=== PATIENT | female | born 1935 | race Caucasian/White ===

== ENCOUNTER 2019-01-08 12:57 | Inpatient (IN) | payer MEDICARE, MEDICAID ==
[~2019-01-08] VITALS: Ht 152.4 cm; Wt 67.1 kg
--- NOTE | 2019-01-08 13:17 | NUR ---
ED Nurse Note: Patient was brought in by son from home, d/t fall twice today at home. Per son, pt hit right side of the body and head. Pt aox4, Bengali speaking. On room air, no resp distress noted. Pt c/o headache 10/18, denies n/v/changes in vision. Per son, no loss of consciousness noted. Laceration on right upper lip noted. Placed patient on hospital gown, gambling monitor, and cont. pulse ox. VSS at this time. Son at bedside. Safety precautions in place, bed in lowest position and side rails up x2. Will continue to monitor.
--- NOTE | 2019-01-08 13:27 | Emergency Room Report ---
History of Present Illness General Chief Complaint: Multiple Trauma/Fall Source: Family Member Present Illness HPI Patient presents with complaints of fall this morning The son reports that after she fell off her bed she ambulated and had another fall outside she has been complaining of feeling lightheadedness and weak Denies any vomiting or diarrhea denies any lapse of consciousness Patient had pain to the right hip area along with the right facial region Denies any neck pain denies any focal weakness in the upper extremities Patient has had some change in medications recently however is not able to provide the names of the new medication Allergies: Coded Allergies: No Known Allergies (Unverified , 01/08/19) Patient History Past Medical History: see triage record Reviewed Nursing Documentation: PMH: Agreed; PSxH: Agreed Nursing Documentation-PMH Hx Hypertension: Yes Hx Diabetes: Yes Review of Systems All Other Systems: negative except mentioned in HPI Physical Exam Vital Signs Date Time Temp Pulse Resp B/P (MAP) Pulse Ox O2 Delivery O2 Flow Rate FiO2 01/08/19 13:06 98.2 77 18 124/61 (82) 96 Room Air Sp02 EP Interpretation: reviewed, normal General Appearance: well appearing, no apparent distress Head: normocephalic, other - Contusions noted to the right upper maxillary and lower jawline small abrasion to the upper lip Eyes: bilateral eye PERRL, bilateral eye EOMI ENT: hearing grossly normal, TMs + canals normal, uvula midline Neck: full range of motion, supple, no meningismus, no bony tend Respiratory: lungs clear, normal breath sounds, no rhonchi, no respiratory distress, no retraction, no accessory muscle use Cardiovascular #1: normal peripheral pulses, regular rate, rhythm, no edema, no gallop, no JVD, no murmur Gastrointestinal: normal bowel sounds, non tender, soft, no mass, no organomegaly, non-distended, no guarding, no hernia, no pulsatile mass, no rebound Genitourinary: no CVA tenderness Musculoskeletal: other - Pain to the right hip on palpation unable to fully flex the right leg Neurologic: oriented x3, responsive, conductor yard III-XII nml as tested, motor strength/ tone normal, sensory intact Psychiatric: mood/affect normal Skin: other - As above Lymphatic: normal inspection, no adenopathy Medical Decision Making Labs Test 01/08/19 13:30 White Blood Count 12.2 K/UL (4.8-10.8) Red Blood Count 2.67 M/UL (4.20-5.40) Hemoglobin 12.1 G/DL (12.0-16.0) Hematocrit 23.7 % (37.0-47.0) Mean Corpuscular Volume 89 FL (80-99) Mean Corpuscular Hemoglobin 45.3 PG (27.0-31.0) Mean Corpuscular Hemoglobin Concent 51.2 G/DL (32.0-36.0) Red Cell Distribution Width 19.7 % (11.6-14.8) Platelet Count 238 K/UL (150-450) Mean Platelet Volume 6.8 FL (6.5-10.1) Neutrophils (%) (Auto) 71.4 % (45.0-75.0) Lymphocytes (%) (Auto) 15.1 % (20.0-45.0) Monocytes (%) (Auto) 7.0 % (1.0-10.0) Eosinophils (%) (Auto) 5.7 % (0.0-3.0) Basophils (%) (Auto) 0.7 % (0.0-2.0) Sodium Level 138 MMOL/L (136-145) Potassium Level 3.7 MMOL/L (3.5-5.1) Chloride Level 105 MMOL/L (98-107) Carbon Dioxide Level 23 MMOL/L (21-32) Anion Gap 10 mmol/L (5-15) Blood Urea Nitrogen 29 mg/dL (7-18) Creatinine 1.4 MG/DL (0.55-1.30) Estimat Glomerular Filtration Rate mL/min (>60) Glucose Level 257 MG/DL (74-106) Calcium Level 8.7 MG/DL (8.5-10.1) Total Bilirubin 0.6 MG/DL (0.2-1.0) Aspartate Amino Transf (AST/SGOT) 29 U/L (15-37) Alanine Aminotransferase (ALT/SGPT) 37 U/L (12-78) Alkaline Phosphatase 94 U/L (46-116) Troponin I 0.000 ng/mL (0.000-0.056) Pro-B-Type Natriuretic Peptide 359 pg/mL (0-125) Total Protein 7.4 G/DL (6.4-8.2) Albumin 3.5 G/DL (3.4-5.0) Globulin 3.9 g/dL Albumin/Globulin Ratio 0.9 (1.0-2.7) Lipase 216 U/L (73-393) Rhythm Strip Diag. Results EP Interpretation: yes Rate: 66 Rhythm: NSR, no PVC's, no ectopy Chest X-Ray Diagnostic Results Chest X-Ray Diagnostic Results : Chest X-Ray Ordered: Yes # of Views/Limited/Complete: 1 View Indication: Chest Pain EP Interpretation: Yes Interpretation: no consolidation, no effusion, no pneumothorax Last Vital Signs Date Time Temp Pulse Resp B/P (MAP) Pulse Ox O2 Delivery O2 Flow Rate FiO2 01/08/19 13:06 98.2 77 18 124/61 (82) 96 Room Air Status: improved Bettina Gonzales DO Jan 08, 2019 13:27
--- NOTE | 2019-01-08 13:37 | NUR ---
ED Nurse Note: xray at bedside.
[2019-01-08 13:47] LABS: BASOPHILS % (AUTO) 0.7 % (0.0-2.0); EOSINOPHILS % (AUTO) 5.7 % (0.0-3.0); HEMATOCRIT 23.7 % (37.0-47.0); HEMOGLOBIN 12.1 G/DL (12.0-16.0); LYMPHOCYTES % (AUTO) 15.1 % (20.0-45.0); MEAN CORPUSCULAR VOLUME 89 FL (80-99); NEUTROPHILS % (AUTO) 71.4 % (45.0-75.0); PLATELET COUNT 238 K/UL (150-450); RED BLOOD COUNT 2.67 M/UL (4.20-5.40); RED CELL DISTRIBUTION WIDTH 19.7 % (11.6-14.8); WHITE BLOOD COUNT 12.2 K/UL (4.8-10.8)
--- NOTE | 2019-01-08 13:50 | NUR ---
ED Nurse Note: pt take down to CT, in stable condition.
[2019-01-08] MEDS ORDERED: GLIPIZIDE10 MG PO (13:53)
[2019-01-08] MEDS ORDERED: TACTINAL500 M1 PO (13:53)
[2019-01-08] MEDS ORDERED: DONEPEZIL HCL5 M2 ORAL (13:53)
[2019-01-08] MEDS ORDERED: CHLORTHALIDONE25 MG ORAL (13:55)
[2019-01-08] MEDS ORDERED: OMEPRAZOLE40 M1 ORAL (13:55)
[2019-01-08] MEDS ORDERED: MELOXICAM7.5 MG PO (13:55)
[2019-01-08] MEDS ORDERED: LORATADINE10 M2 PO (13:56)
[2019-01-08] MEDS ORDERED: LOSARTAN POTASS50 MG ORAL (13:56)
[2019-01-08 14:00] LABS: ANION GAP 10 mmol/L (5-15); BLOOD UREA NITROGEN 29 mg/dL (7-18); CALCIUM 8.7 MG/DL (8.5-10.1); CARBON DIOXIDE 23 MMOL/L (21-32); CHLORIDE 105 MMOL/L (98-107); CREATININE 1.4 MG/DL (0.55-1.30); POTASSIUM 3.7 MMOL/L (3.5-5.1); SODIUM 138 MMOL/L (136-145)
[2019-01-08 14:05] VITALS: BP 124/61
[2019-01-08 14:11] LABS: ALANINE AMINOTRANSFERASE 37 U/L (12-78); ALBUMIN 3.5 G/DL (3.4-5.0); ALBUMIN/GLOBULIN RATIO 0.9 (1.0-2.7); ALKALINE PHOSPHATASE 94 U/L (46-116); ASPARTATE AMINO TRANSFERASE 29 U/L (15-37); BILIRUBIN,TOTAL 0.6 MG/DL (0.2-1.0)
--- NOTE | 2019-01-08 14:11 | NUR ---
ED Nurse Note: Pt back from CT in stable condition.
--- NOTE | 2019-01-08 14:58 | Diagnostic Imaging Report ---
Indication: Headache Technique: Contiguous 5 mm thick transaxial imaging of the head obtained in a Siemens Sensation [address] scanner. Soft tissue and bone windows generated. Automatic Exposure Control was utilized. Total Dose length Product (DLP): [address] Dose Index Volume (CTDIvol): 62.7 mGy Comparison: none Findings: There is mild prominence of the ventricles, basal cisterns, and cerebral sulci consistent with atrophy. Mild, nonspecific, white matter hypoattenuation is noted throughout the brain consistent with chronic small vessel disease. There is no midline shift, edema, acute hemorrhage, mass effect, or abnormal extra-axial fluid collections. Right posterior fossa craniectomy noted Bones are unremarkable. Impression: No acute intracranial bleed, mass effect or edema. Mild atrophy of the brain. Nonspecific white matter hypoattenuation probably due to chronic small vessel disease. Right-sided posterior craniectomy The CT scanner at [facility] is accredited by the [employer] and the scans are performed using dose optimization techniques as appropriate to a performed exam including Automatic Exposure control.
--- NOTE | 2019-01-08 15:00 | NUR ---
ED Nurse Note: Pt noted in bed, asleep, no s/s of distress/pain at this time. Will cont. to monitor.
--- NOTE | 2019-01-08 15:04 | Diagnostic Imaging Report ---
Indication: Back pain and trauma Technique: Continuous helical transaxial imaging of the lumbar spine was obtained. No IV contrast was administered. Coronal 2-D reformats were also obtained. Study obtained in a Siemens sensation [address] Total Dose length Product (DLP): 646.[address] Dose Index Volume (CTDIvol): 17.1 mGy Comparison: None Findings: There is a severe compression fracture deformity of the T12 vertebra with about 80% loss of height mild retropulsion. This appears old. There is kyphosis about the fracture which is fractured in a anterior wedge configuration. Bones are osteopenic. No acute fracture is identified. The intervertebral discs appear relatively normal in height. There is severe hypertrophy of the lower lumbar facets and mild hypertrophy of the lumbar facets elsewhere. There is suggestion of a disc bulge or protrusion at L4-5 and L5-S1. There is suggestion of neural foraminal stenosis involving multiple levels. Aorta is moderately calcified. There is irregular sclerosis of the sacrum bilaterally. Findings are nonspecific but may be on the basis of old trauma. IMPRESSION: No acute injury identified. Old severe compression fracture deformity of the T12 vertebra. Resultant kyphosis. Sclerosis of the sacrum which may be due to old trauma. Osteoporosis Degenerative disease of the lumbar spine as described above Atherosclerotic disease The CT scanner at [facility] is accredited by the [employer] and the scans are performed using dose optimization techniques as appropriate to a performed exam including Automatic Exposure control.
--- NOTE | 2019-01-08 15:13 | Diagnostic Imaging Report ---
Indication: Pelvic pain. Trauma Technique: Continuous helical transaxial imaging of the pelvis was obtained from the iliac crest to the pubic symphysis. Coronal 2-D reformats were also obtained. Study obtained in a Siemens sensation [address] Total Dose length Product (DLP): 1004.[address] Dose Index Volume (CTDIvol): 26.7 mGy Comparison: None Findings: No fracture identified. There is sclerosis of the sacrum bilaterally which may be on the basis of previous trauma but is nonspecific finding. There is an old fracture of the right superior pubic ramus and right inferior pubic ramus. There is an old fracture of the left inferior pubic ramus. Bones are osteopenic. The hips are normal in alignment. No hip fracture identified. Aortoiliac calcifications are present. Uterus noted. Bladder is nondistended. No free fluid identified in the pelvis. IMPRESSION: No acute injury. Evidence of old pelvic trauma as described above The CT scanner at [facility] is accredited by the [employer] and the scans are performed using dose optimization techniques as appropriate to a performed exam including Automatic Exposure control.
[2019-01-08 15:23] VITALS: BP 111/44
--- NOTE | 2019-01-08 15:42 | Diagnostic Imaging Report ---
Indication: Dyspnea Comparison: None A single view chest radiograph was obtained. Findings: No definite infiltrate or pulmonary vascular congestion identified. The heart is enlarged. The aorta is mildly enlarged consistent with atherosclerotic vascular disease. The bones are osteopenic. Impression: No acute disease
--- NOTE | 2019-01-08 16:47 | NUR ---
ED Nurse Note: Report given to KATELYNN Hernandez via telephone.
--- NOTE | 2019-01-08 16:52 | History and Physical ---
History of Present Illness General Reason for Hospitalization: Multiple Trauma/Fall Present Illness HPI This is an 83 year old female with PMhx HTN, DM, Dementia, peripheral neuropathy who presents with 1 day history of lightheadedness weakness and 2 falls. History provided by Son and nurse who provided bulgarian translation. LKWT 01/07 at 1300. Patient altered today. History provided by son. The son reports that today after she fell off her bed she ambulated and had another fall outside she has been complaining of feeling lightheadedness and weak Denies any vomiting or diarrhea denies any lapse of consciousness. Patient had pain to the right hip area along with laceration to upper lip. Denies any neck pain denies any focal weakness in the upper extremities. She does complain of dysuria, for an unknown period of time. Also with intermittent palpitations she mentions. In the ER temperature 98.2 pulse 77 respirations 18 blood pressure 124/61 saturating 96% on room air. WBC 12, hemoglobin 12.1 (unknown baselin), creatinine 1.4 (unknown baseline), blood sugar 257. Rest of labs unremarkable. Troponin negative. proBNP 359. Chest x-ray negative, CT head negative. EKG unremarkable. CT thoracic spine showed no acute injury identified, but old severe compression fracture of T12, sclerosis of sacrum. CT pelvis showed Evidence of old pelvic trauma. No acute injury. Patient given 1L IV fluids with improvement in symptoms Allergies: none Medications: reviewed PMhx: Fibromyalgia, HTN, DM Surgical History: Surgery for fibromyalgia? Family history: HTN, sister Social history: Former smoker and drinker. Quit many years ago. No drug use. Allergies: Coded Allergies: No Known Allergies (Unverified , 01/08/19) Medication History Scheduled Acetaminophen (Tactinal), 500 MG PO EVERY 8 HOURS, (Reported) Chlorthalidone* (Chlorthalidone*), 25 MG ORAL DAILY, (Reported) Donepezil Hcl* (Donepezil Hcl*), 5 MG ORAL DAILY, (Reported) Gabapentin* (Gabapentin*), 300 MG ORAL THREE TIMES A DAY, (Reported) Glipizide (Glipizide), 10 MG PO TWICE A DAY, (Reported) Isosorbide Mononitrate (Isosorbide Mononitrate), 60 MG PO DAILY, (Reported) Loratadine (Loratadine), 10 MG PO DAILY, (Reported) Losartan Potassium* (Losartan Potassium*), 100 MG ORAL DAILY, (Reported) Meloxicam* (Meloxicam*), 7.5 MG PO DAILY, (Reported) Omeprazole (Omeprazole), 40 MG ORAL DAILY, (Reported) Patient History Limited by: medical condition History Provided By: Patient, Family Member Healthcare decision maker Son Resuscitation status Full Code Advanced Directive on File None Review of Systems Constitutional: Reports: weakness; Denies: see HPI, chills, sweats, fever, malaise, other Eye: Denies: see HPI, eye pain, blurred vision, tearing, double vision, nose pain, nose congestion, acuity changes, discharge, other ENT: Denies: see HPI, ear pain, ear discharge, nose pain, nose congestion, throat pain, throat swelling, mouth pain, hearing loss, nasal discharge, other Respiratory: Denies: see HPI, cough, orthopnea, shortness of breath, stridor, wheezing, SAAVEDRA, sputum, other Cardiovascular: Denies: see HPI, chest pain, edema, palpitations, syncope, PND , other Gastrointestinal: Denies: see HPI, abdominal pain, constipation, diarrhea, nausea, vomiting, melena, hematemesis, other Genitourinary: Denies: see HPI, discharge, dysuria, frequency, hematuria, pain , retention, incontinence, urgency, vag bleed/dc, other Musculoskeletal: Denies: see HPI, back pain, gout, joint pain, joint swelling, muscle pain, muscle stiffness, other Skin: Denies: see HPI, rash, change in color, change in hair/nails, dryness, lesions, other Psychiatric: Denies: see HPI, prior hx, anxiety, depressed feelings, emotional problems, SI, HI, hallucinations, other Neurological: Reports: dizziness; Denies: see HPI, headache, numbness, paresthesia, seizure, tingling, tremors, focal weakness, syncope, other Endocrine: Denies: see HPI, excessive sweating, flushing, intolerance to temperature, increased thirst, increased urine, unexplained weight loss, other Hematologic/Lymphatic: Denies: see HPI, anemia, blood clots, easy bleeding, easy bruising, swollen glands, diathesis, other Physical Exam General Appearance: WD/WN, no apparent distress, alert, other - slightly drowsy Lines, tubes and drains: peripheral HEENT: normocephalic, atraumatic, anicteric Neck: non-tender, normal alignment, normal inspection Respiratory/Chest: chest wall non-tender, lungs clear, normal breath sounds, no respiratory distress Cardiovascular/Chest: normal peripheral pulses, normal rate, regular rhythm, no JVD Abdomen: normal bowel sounds, non tender, soft, no organomegaly, no mass Extremities: normal range of motion, non-tender, normal inspection Skin Exam: normal pigmentation, warm/dry 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, no motor/sensory deficits, alert, responsive, normal mood/affect, other - right sided facial droop and decreased sensation to light touch on right side of face (present since facial surgery for fibromyalgia), chronic Musculoskeletal: normal muscle bulk, no effusion Last 24 Hour Vital Signs Date Time Temp Pulse Resp B/P (MAP) Pulse Ox O2 Delivery O2 Flow Rate FiO2 01/08/19 15:23 98.2 70 18 111/44 96 Room Air 01/08/19 14:05 98.2 78 18 124/61 96 Room Air 01/08/19 14:05 77 18 Room Air 01/08/19 13:06 98.2 77 18 124/61 (82) 96 Room Air Laboratory Tests Test 01/08/19 13:30 White Blood Count 12.2 K/UL (4.8-10.8) H Red Blood Count 2.67 M/UL (4.20-5.40) L Hemoglobin 12.1 G/DL (12.0-16.0) Hematocrit 23.7 % (37.0-47.0) L Mean Corpuscular Volume 89 FL (80-99) Mean Corpuscular Hemoglobin 45.3 PG (27.0-31.0) H Mean Corpuscular Hemoglobin Concent 51.2 G/DL (32.0-36.0) H Red Cell Distribution Width 19.7 % (11.6-14.8) H Platelet Count 238 K/UL (150-450) Mean Platelet Volume 6.8 FL (6.5-10.1) Neutrophils (%) (Auto) 71.4 % (45.0-75.0) Lymphocytes (%) (Auto) 15.1 % (20.0-45.0) L Monocytes (%) (Auto) 7.0 % (1.0-10.0) Eosinophils (%) (Auto) 5.7 % (0.0-3.0) H Basophils (%) (Auto) 0.7 % (0.0-2.0) Sodium Level 138 MMOL/L (136-145) Potassium Level 3.7 MMOL/L (3.5-5.1) Chloride Level 105 MMOL/L (98-107) Carbon Dioxide Level 23 MMOL/L (21-32) Anion Gap 10 mmol/L (5-15) Blood Urea Nitrogen 29 mg/dL (7-18) H Creatinine 1.4 MG/DL (0.55-1.30) H Estimat Glomerular Filtration Rate mL/min (>60) Glucose Level 257 MG/DL (74-106) H Calcium Level 8.7 MG/DL (8.5-10.1) Total Bilirubin 0.6 MG/DL (0.2-1.0) Aspartate Amino Transf (AST/SGOT) 29 U/L (15-37) Alanine Aminotransferase (ALT/SGPT) 37 U/L (12-78) Alkaline Phosphatase 94 U/L (46-116) Troponin I 0.000 ng/mL (0.000-0.056) Pro-B-Type Natriuretic Peptide 359 pg/mL (0-125) H Total Protein 7.4 G/DL (6.4-8.2) Albumin 3.5 G/DL (3.4-5.0) Globulin 3.9 g/dL Albumin/Globulin Ratio 0.9 (1.0-2.7) L Lipase 216 U/L (73-393) Height (Feet): 4 Height (Inches): 9.00 Weight (Pounds): 160 Assessment/Plan Problem List: (1) Near syncope ICD Codes: R55 - Syncope and collapse SNOMED: 052693687 (2) Generalized weakness ICD Codes: R53.1 - Weakness SNOMED: 26608494 (3) Fall ICD Codes: W19.XXXA - Unspecified fall, initial encounter SNOMED: 9302574, 210918640 (4) Lightheaded ICD Codes: R42 - Dizziness and giddiness SNOMED: 907166042 (5) Leukocytosis ICD Codes: D72.829 - Elevated white blood cell count, unspecified SNOMED: 262207202, 724088040 (6) Diabetes mellitus type 2 in nonobese ICD Codes: E11.9 - Type 2 diabetes mellitus without complications SNOMED: 915767426 (7) Hypertension ICD Codes: I10 - Essential (primary) hypertension SNOMED: 91777946 (8) Peripheral neuropathy ICD Codes: G62.9 - Polyneuropathy, unspecified SNOMED: 781396730 (9) Hyperglycemia ICD Codes: R73.9 - Hyperglycemia, unspecified SNOMED: 42119552 (10) T12 compression fracture ICD Codes: S22.080A - Wedge compression fracture of T11-T12 vertebra, initial encounter for closed fracture SNOMED: 414881727 (11) Multiple injuries due to trauma ICD Codes: T07.XXXA - Unspecified multiple injuries, initial encounter SNOMED: 431331731, 011772128 Assessment/Plan: Is an 83-year-old female with a past medical history of diabetes, hypertension, peripheral neuropathy presenting with generalized weakness, lightheadedness x 1 day and dysuria. #Near syncope #Generalized weakness, lightheadedness. Suspect dehydration versus infection ( UTI) #Leukocytosis, mild. Reactive vs. infectious > Unable to obtain UA in emergency department. -Admit to telemetry -TTE -Trend troponins -Urinalysis with straight cath -Check orthostatics -Blood culture x2 -Start Rocephin 1 g IV every 24 hours (01/08 - ) -NS @ 100 cc/hr #TESSIE versus CKD. Suspect prerenal -IV fluids as above -trend Cr -avoid nephrotoxins -bladder scan. straight cath if >300cc #lip laceration - wound care consult #Hypertension -Continue losartan 100 mg p.o. daily -Hold chlorthalidone as may be contributing to dehydration as above -Hydralazine 10 mg p.o. every 6 hours as needed for SBP greater than 160 #Diabetes mellitus type 2 -Hold home glipizide -Accu-Cheks before meals and at bedtime -Low sliding scale insulin -Hypoglycemia protocol #Peripheral neuropathy Continue home gabapentin 300 mg p.o. 3 times daily #History of T12 compression fracture #History of multiple pelvic fractures - continue to monitor - needs osteoporosis treatment as outpatient, likely FENPPX DVTPPX: heparin SBQ Q8hrs GI PPX: none needed Fluids: As above Diet: Diabetic Lines: peripheral PT/OT: pending Code status: Full Dispo: Home with home health vs. snf Reason for Continued Hospitalization: AMS, weakness 73 minutes spent on this encounter. Discussed with patient, RN, and family. > 50 % spent on counseling and care coordination. Time of note may not reflect time patient was seen. Jonathan Arevalo D.O. Jan 08, 2019 16:52
--- NOTE | 2019-01-08 17:17 | NUR ---
TRANSFER TO FLOOR: Patient transferred to [facility] as ordered, per Dr Ortega. Report given to KATELYNN Hernandez. Belongings signed. Transferred patient via gurney, accompanied by 2 RNs. Son, Francisco notified. Patient remains in stable condition.
[2019-01-08] MEDS ORDERED: GABAPENTIN300 MG ORAL (18:20)
[2019-01-08] MEDS ORDERED: ISOSORBIDE MONO20 MG PO (18:20)
[2019-01-08] MEDS ORDERED: HydrALAZINE 10mg Tab ORAL PRN (18:45)
--- NOTE | 2019-01-08 19:24 | NUR ---
HAND-OFF: Report given to KATELYNN Troncoso.
--- NOTE | 2019-01-08 19:24 | History and Physical ---
History of Present Illness General Date patient seen: Jan 08, 2019 Reason for Hospitalization: Multiple Trauma/Fall Present Illness HPI This is an 83-year-old female with a past medical history of hypertension, diabetes Allergies: Coded Allergies: No Known Allergies (Unverified , 01/08/19) Medication History Scheduled Acetaminophen (Tactinal), 500 MG PO EVERY 8 HOURS, (Reported) Chlorthalidone* (Chlorthalidone*), 25 MG ORAL DAILY, (Reported) Donepezil Hcl* (Donepezil Hcl*), 5 MG ORAL DAILY, (Reported) Gabapentin* (Gabapentin*), 300 MG ORAL THREE TIMES A DAY, (Reported) Glipizide (Glipizide), 10 MG PO TWICE A DAY, (Reported) Isosorbide Mononitrate (Isosorbide Mononitrate), 60 MG PO DAILY, (Reported) Loratadine (Loratadine), 10 MG PO DAILY, (Reported) Losartan Potassium* (Losartan Potassium*), 100 MG ORAL DAILY, (Reported) Meloxicam* (Meloxicam*), 7.5 MG PO DAILY, (Reported) Omeprazole (Omeprazole), 40 MG ORAL DAILY, (Reported) Patient History Healthcare decision maker Resuscitation status Full Code Advanced Directive on File Physical Exam Last 24 Hour Vital Signs Date Time Temp Pulse Resp B/P (MAP) Pulse Ox O2 Delivery O2 Flow Rate FiO2 01/08/19 18:16 Room Air 01/08/19 17:39 98.2 72 18 122/82 98 Room Air 01/08/19 15:23 98.2 70 18 111/44 96 Room Air 01/08/19 14:05 98.2 78 18 124/61 96 Room Air 01/08/19 14:05 77 18 Room Air 01/08/19 13:06 98.2 77 18 124/61 (82) 96 Room Air Laboratory Tests Test 01/08/19 13:30 White Blood Count 12.2 K/UL (4.8-10.8) H Red Blood Count 2.67 M/UL (4.20-5.40) L Hemoglobin 12.1 G/DL (12.0-16.0) Hematocrit 23.7 % (37.0-47.0) L Mean Corpuscular Volume 89 FL (80-99) Mean Corpuscular Hemoglobin 45.3 PG (27.0-31.0) H Mean Corpuscular Hemoglobin Concent 51.2 G/DL (32.0-36.0) H Red Cell Distribution Width 19.7 % (11.6-14.8) H Platelet Count 238 K/UL (150-450) Mean Platelet Volume 6.8 FL (6.5-10.1) Neutrophils (%) (Auto) 71.4 % (45.0-75.0) Lymphocytes (%) (Auto) 15.1 % (20.0-45.0) L Monocytes (%) (Auto) 7.0 % (1.0-10.0) Eosinophils (%) (Auto) 5.7 % (0.0-3.0) H Basophils (%) (Auto) 0.7 % (0.0-2.0) Sodium Level 138 MMOL/L (136-145) Potassium Level 3.7 MMOL/L (3.5-5.1) Chloride Level 105 MMOL/L (98-107) Carbon Dioxide Level 23 MMOL/L (21-32) Anion Gap 10 mmol/L (5-15) Blood Urea Nitrogen 29 mg/dL (7-18) H Creatinine 1.4 MG/DL (0.55-1.30) H Estimat Glomerular Filtration Rate mL/min (>60) Glucose Level 257 MG/DL (74-106) H Calcium Level 8.7 MG/DL (8.5-10.1) Total Bilirubin 0.6 MG/DL (0.2-1.0) Aspartate Amino Transf (AST/SGOT) 29 U/L (15-37) Alanine Aminotransferase (ALT/SGPT) 37 U/L (12-78) Alkaline Phosphatase 94 U/L (46-116) Troponin I 0.000 ng/mL (0.000-0.056) Pro-B-Type Natriuretic Peptide 359 pg/mL (0-125) H Total Protein 7.4 G/DL (6.4-8.2) Albumin 3.5 G/DL (3.4-5.0) Globulin 3.9 g/dL Albumin/Globulin Ratio 0.9 (1.0-2.7) L Lipase 216 U/L (73-393) Height (Feet): 5 Height (Inches): 9.00 Weight (Pounds): 148 Medications Current Medications Medications (Trade) Dose Ordered Sig/Aida Route PRN Reason Start Time Stop Time Status Last Admin Dose Admin Ceftriaxone Sodium (Rocephin) 1 gm DAILY IM 01/08/19 18:30 01/15/19 18:29 UNV Dextrose (Dextrose 50%) 25 ml Q30M PRN IV Hypoglycemia 01/08/19 18:30 02/07/19 18:29 Dextrose (Dextrose 50%) 50 ml Q30M PRN IV Hypoglycemia 01/08/19 18:30 02/07/19 18:29 Donepezil HCl (Aricept) 5 mg DAILY ORAL 01/09/19 09:00 02/08/19 08:59 Gabapentin (Neurontin) 300 mg THREE TIMES A DAY ORAL 01/09/19 09:00 02/08/19 08:59 Heparin Sodium (Porcine) (Heparin 5000 units/ml) 5,000 units EVERY 8 HOURS SUBQ 01/08/19 22:00 02/07/19 21:59 Hydralazine HCl (Apresoline) 10 mg Q6H PRN ORAL SBP >160 01/08/19 18:45 02/07/19 18:44 Insulin Aspart (NovoLOG) BEFORE MEALS AND HS SUBQ 01/08/19 21:00 02/07/19 20:59 Loratadine (Claritin 10mg) 10 mg DAILY ORAL 01/09/19 09:00 02/08/19 08:59 Losartan Potassium (Cozaar) 100 mg DAILY ORAL 01/09/19 09:00 02/08/19 08:59 Sodium Chloride 1,000 ml @ 100 mls/hr Q10H IVLG 01/08/19 19:30 02/07/19 19:29 Jonathan Arevalo D.O. Jan 08, 2019 19:24
--- NOTE | 2019-01-08 19:31 | NUR ---
NURSE NOTES: Received report from KATELYNN Hernandez. Patient is resting comfortably in bed with IV intact, alert and oriented x3. No c/o of pain or SOB on room air. Bed in low and locked position, call light in reach, yellow socks on. Will continue to monitor.
[2019-01-08 20:00] VITALS: BP 103/42
--- NOTE | 2019-01-08 20:00 | NUR ---
NURSE NOTES: Received pt from Aba RN from [facility]. Pt awake, alert, and talkative. Bed in lowest position. Call light within reach. Will continue to monitor.
--- NOTE | 2019-01-08 20:14 | NUR ---
HAND-OFF: Report given to 2E bronc breaker Kate. Patient is set to transfer from 3E to 2E. Patient is in stable condition.
[2019-01-08] MEDS: cefTRIAXone 1 GM in D5W 55 ML IVPB SCH (22:14)
[2019-01-08] MEDS: NovoLOG Insulin Flexpen SUBQ SCH (22:25)
[2019-01-08] MEDS: Heparin 5000 units/ml inj SUBQ SCH (22:27)
[2019-01-09] VITALS (8 sets, daily range): BP systolic 121–185; BP diastolic 58–87
[2019-01-09 00:02] LABS: APPEARANCE,URINE CLEAR; BILIRUBIN, URINE NEGATIVE (NEGATIVE); COLOR,URINE PALE YELLOW; GLUCOSE, URINE (UA) NEGATIVE (NEGATIVE); KETONES,URINE NEGATIVE (NEGATIVE); LEUKOCYTE ESTERASE ,URINE 1+ (NEGATIVE); NITRITE,URINE NEGATIVE (NEGATIVE); PH,URINE 6 (4.5-8.0); PROTEIN,URINE 2+ (NEGATIVE); UROBILINOGEN,URINE NORMAL MG/DL (0.0-1.0)
--- NOTE | 2019-01-09 01:33 | NUR ---
NURSE NOTES: Called and left a message with Dr. Jeffers regarding pts episodes of bigeminy and trigeminy pvcs. She ordered repeat BMP in the AM. Will continue to monitor.
[2019-01-09] MEDS: Heparin 5000 units/ml inj SUBQ SCH ×3 (05:32→22:00)
[2019-01-09] MEDS: NovoLOG Insulin Flexpen SUBQ SCH ×4 (05:33→21:00)
[2019-01-09 07:30] LABS: ANION GAP 12 mmol/L (5-15); BLOOD UREA NITROGEN 27 mg/dL (7-18); CALCIUM 8.5 MG/DL (8.5-10.1); CARBON DIOXIDE 24 MMOL/L (21-32); CHLORIDE 108 MMOL/L (98-107); CREATININE 1.2 MG/DL (0.55-1.30); POTASSIUM 3.9 MMOL/L (3.5-5.1); SODIUM 143 MMOL/L (136-145)
--- NOTE | 2019-01-09 07:32 | NUR ---
HAND-OFF: Report given to KATELYNN Patel. Pt stable.
--- NOTE | 2019-01-09 07:37 | NUR ---
NURSE NOTES: Received patient from Charles Venegas. Patient is awake in bed. No complain of pain or discomfort. Reminded patient re; Safety precautions. call valenzuela within reached, side rails X2 up for safety. bed locked to lowest position. will monitor patient throughout shift
[2019-01-09 07:56] LABS: BASOPHILS % (AUTO) 0.4 % (0.0-2.0); EOSINOPHILS % (AUTO) 6.8 % (0.0-3.0); HEMATOCRIT 33.2 % (37.0-47.0); HEMOGLOBIN 11.6 G/DL (12.0-16.0); LYMPHOCYTES % (AUTO) 26.3 % (20.0-45.0); MEAN CORPUSCULAR VOLUME 84 FL (80-99); NEUTROPHILS % (AUTO) 61.6 % (45.0-75.0); PLATELET COUNT 218 K/UL (150-450); RED BLOOD COUNT 3.98 M/UL (4.20-5.40); RED CELL DISTRIBUTION WIDTH 12.5 % (11.6-14.8); WHITE BLOOD COUNT 9.5 K/UL (4.8-10.8)
[2019-01-09] MEDS: Donepezil 5mg Tab ORAL SCH (08:23)
[2019-01-09] MEDS: Losartan 50mg tab ORAL SCH (08:23)
[2019-01-09] MEDS ORDERED: traMADol 50mg tab ORAL PRN (12:45)
--- NOTE | 2019-01-09 13:04 | General Progress Note ---
Assessment/Plan Problem List: (1) Near syncope ICD Codes: R55 - Syncope and collapse SNOMED: 607441943 (2) Generalized weakness ICD Codes: R53.1 - Weakness SNOMED: 28168082 (3) Fall ICD Codes: W19.XXXA - Unspecified fall, initial encounter SNOMED: 1511473, 081730505 (4) Lightheaded ICD Codes: R42 - Dizziness and giddiness SNOMED: 937215175 (5) Leukocytosis ICD Codes: D72.829 - Elevated white blood cell count, unspecified SNOMED: 413238126, 656191492 (6) Diabetes mellitus type 2 in nonobese ICD Codes: E11.9 - Type 2 diabetes mellitus without complications SNOMED: 039692317 (7) Hypertension ICD Codes: I10 - Essential (primary) hypertension SNOMED: 02447108 (8) Peripheral neuropathy ICD Codes: G62.9 - Polyneuropathy, unspecified SNOMED: 566806475 (9) Hyperglycemia ICD Codes: R73.9 - Hyperglycemia, unspecified SNOMED: 43200369 (10) T12 compression fracture ICD Codes: S22.080A - Wedge compression fracture of T11-T12 vertebra, initial encounter for closed fracture SNOMED: 402348755 (11) Multiple injuries due to trauma ICD Codes: T07.XXXA - Unspecified multiple injuries, initial encounter SNOMED: 782963225, 992090951 Assessment/Plan: Is an 83-year-old female with a past medical history of diabetes, hypertension, peripheral neuropathy presenting with generalized weakness, lightheadedness x 1 day and dysuria. #Near syncope. No further syncopal episodes while inpatient #Generalized weakness, lightheadedness. Suspect dehydration versus infection ( UTI) -improving #Leukocytosis, mild. Reactive vs. infectious-improving > Unable to obtain UA in emergency department. > 2D echocardiogram showed moderate pulmonary hypertension with an RVSP of 52 > Urinalysis negative but taken after antibiotics > troponins negative -Admit to telemetry -Blood culture x2 - negative so far -Start Rocephin 1 g IV every 24 hours (01/08 - ). Plan for 3 day course -Discontinue NS @ 100 cc/hr #TESSIE versus CKD. Suspect prerenal-improving -IV fluids as above -trend Cr -avoid nephrotoxins #lip laceration - wound care consult #Hypertension -Continue losartan 100 mg p.o. daily -Hold chlorthalidone as may be contributing to dehydration as above -Increase hydralazine to 25 mg p.o. every 6 hours as needed for SBP greater than 160 #Diabetes mellitus type 2 -Hold home glipizide -Accu-Cheks before meals and at bedtime -Low sliding scale insulin -Hypoglycemia protocol #Peripheral neuropathy Continue home gabapentin 300 mg p.o. 3 times daily #History of T12 compression fracture #History of multiple pelvic fractures - continue to monitor - needs osteoporosis treatment as outpatient, likely #Hypomagnesemia -Replete PRN FENPPX DVTPPX: heparin SBQ Q8hrs GI PPX: none needed Fluids: none Diet: Diabetic Lines: peripheral PT/OT: pending Code status: Full Dispo: Home with home health vs. snf Reason for Continued Hospitalization: AMS, weakness 38 minutes spent on this encounter. Discussed with patient, RN, and family. > 50 % spent on counseling and care coordination. Time of note may not reflect time patient was seen. Subjective Date patient seen: Jan 09, 2019 Constitutional: Reports: weakness - But improving; Denies: chills, diaphoresis , fever, malaise, other HEENT: Denies: eye pain, blurred vision, tearing, double vision, ear pain, ear discharge, nose pain, nose congestion, throat pain, throat swelling, mouth pain , mouth swelling, other Cardiovascular: Denies: chest pain, edema, irregular heart rate, lightheadedness, palpitations, syncope, other Respiratory: Denies: cough, orthopnea, shortness of breath, SOB with excertion , SOB at rest, sputum, stridor, wheezing, other Gastrointestinal/Abdominal: Denies: abdomen distended, abdominal pain, black stools, tarry stools, blood in stool, constipated, diarrhea, difficulty swallowing, nausea, poor appetite, poor fluid intake, rectal bleeding, vomiting , other Genitourinary: Denies: burning, discharge, frequency, flank pain, hematuria, incontinence, pain, urgency, other Neurologic/Psychiatric: Denies: anxiety, depressed, emotional problems, headache, numbness, paresthesia, pre-existing deficit, seizure, tingling, tremors, weakness, other Endocrine: Denies: excessive sweating, flushing, intolerance to cold, intolerance to heat, increased hunger, increased thirst, increased urine, unexplained weight gain, unexplained weight loss, other Hematologic/Lymphatic: Denies: anemia, easy bleeding, easy bruising, other Allergies: Coded Allergies: No Known Allergies (Unverified , 01/08/19) Subjective No acute events overnight per nursing. Hip patient feels much stronger, the dizziness has resolved. She denies any other complaints. She denies cough chest pain shortness of breath fever or chills Objective Last 24 Hour Vital Signs Date Time Temp Pulse Resp B/P (MAP) Pulse Ox O2 Delivery O2 Flow Rate FiO2 01/09/19 12:00 97.7 67 19 163/73 (103) 97 01/09/19 09:35 67 138/58 (84) 01/09/19 09:00 Room Air 01/09/19 08:23 174/64 01/09/19 08:00 97.7 64 174/64 (100) 94 01/09/19 08:00 66 01/09/19 04:00 67 01/09/19 04:00 75 121/68 (85) 95 01/09/19 00:00 69 01/08/19 21:00 Room Air 01/08/19 20:00 98.6 86 103/42 (62) 92 01/08/19 18:16 Room Air 01/08/19 17:39 98.2 72 18 122/82 98 Room Air 01/08/19 15:23 98.2 70 18 111/44 96 Room Air 01/08/19 14:05 98.2 78 18 124/61 96 Room Air 01/08/19 14:05 77 18 Room Air 01/08/19 13:06 98.2 77 18 124/61 (82) 96 Room Air Intake and Output 01/08/19 01/09/19 18:59 06:59 # Voids 2 Laboratory Tests 01/08/19 13:30: White Blood Count 12.2H, Red Blood Count 2.67L, Hemoglobin 12.1, Hematocrit 23.7L, Mean Corpuscular Volume 89, Mean Corpuscular Hemoglobin 45.3H, Mean Corpuscular Hemoglobin Concent 51.2H, Red Cell Distribution Width 19.7H, Platelet Count 238, Mean Platelet Volume 6.8, Neutrophils (%) (Auto) 71.4, Lymphocytes (%) (Auto) 15.1L, Monocytes (%) (Auto) 7.0, Eosinophils (%) (Auto) 5.7H, Basophils (%) (Auto) 0.7, Sodium Level 138, Potassium Level 3.7, Chloride Level 105, Carbon Dioxide Level 23, Anion Gap 10, Blood Urea Nitrogen 29H, Creatinine 1.4H, Estimat Glomerular Filtration Rate , Glucose Level 257H, Calcium Level 8.7, Total Bilirubin 0.6, Aspartate Amino Transf (AST/SGOT) 29, Alanine Aminotransferase (ALT/SGPT) 37, Alkaline Phosphatase 94, Troponin I 0.000, Pro-B-Type Natriuretic Peptide 359H, Total Protein 7.4, Albumin 3.5, Globulin 3.9, Albumin/Globulin Ratio 0.9L, Lipase 216 01/08/19 19:20: Troponin I 0.000 01/08/19 23:44: Urine Color Pale yellow, Urine Appearance Clear, Urine pH 6, Urine Specific Golden 1.010, Urine Protein 2+H, Urine Glucose (UA) Negative, Urine Ketones Negative, Urine Blood Negative, Urine Nitrite Negative, Urine Bilirubin Negative , Urine Urobilinogen Normal, Urine Leukocyte Esterase 1+H, Urine RBC 0-2, Urine WBC 0-2, Urine Squamous Epithelial Cells Few, Urine Bacteria Few 01/09/19 05:31: White Blood Count 9.5, Red Blood Count 3.98L, Hemoglobin 11.6L, Hematocrit 33.2# L, Mean Corpuscular Volume 84, Mean Corpuscular Hemoglobin 29.0, Mean Corpuscular Hemoglobin Concent 34.8, Red Cell Distribution Width 12.5, Platelet Count 218, Mean Platelet Volume 8.2, Neutrophils (%) (Auto) 61.6, Lymphocytes (% ) (Auto) 26.3, Monocytes (%) (Auto) 5.0, Eosinophils (%) (Auto) 6.8H, Basophils (%) (Auto) 0.4, Sodium Level 143, Potassium Level 3.9, Chloride Level 108H, Carbon Dioxide Level 24, Anion Gap 12, Blood Urea Nitrogen 27H, Creatinine 1.2, Estimat Glomerular Filtration Rate , Glucose Level 180H, Calcium Level 8.5, Phosphorus Level 3.0, Magnesium Level 1.6L Height (Feet): 5 Height (Inches): 9.00 Weight (Pounds): 148 General Appearance: WD/WN, alert EENT: PERRL/EOMI, normal ENT inspection Neck: non-tender, normal alignment, supple Cardiovascular: normal peripheral pulses, normal rate, regular rhythm, no JVD Respiratory/Chest: chest wall non-tender, lungs clear, normal breath sounds Abdomen: normal bowel sounds, non tender, soft, no organomegaly Extremities: normal range of motion, non-tender, normal inspection Edema: trace edema Neurologic: care navigator II-XII grossly normal, no motor/sensory deficits, alert, oriented x 3, responsive, normal mood/affect Skin: normal pigmentation, warm/dry Jonathan Arevalo D.O. Jan 09, 2019 13:04
--- NOTE | 2019-01-09 13:42 | NUR ---
NURSE NOTES:WOUND CARE NOTES:Pt presented on admission with small wound upper lip secondary to fall in community. Pt also sustained small laceration R 1st metatarsal from fall. No erythema or bleeding noted. Sacrum is ppink and easily blanchable. Both heels are soft but easily blanchable. No other skin concerns noted. Pt's daughter at bedside and education on wound prevention provided . Pt encouraged to frequently turn while in bed,at least hourly to relieve pressure off buttocks. Encouraged to keep heels floated off bed. Tx.Plan: Apply Moisture Barrier to buttocks. Cover Sacrum with Optifoam drsg. Change every 3 days and prn. Apply Cavilon Skin Barrier to both heels. Cover each heel with Optifoam drsg. Changee very 7 days and prn. Reposition at least every 2hours or as tolerated. Off-load heels with pillow
--- NOTE | 2019-01-09 14:11 | NUR ---
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 PER SON PT FELL TWICE YESTERDAY SI: MULTIPLE FALLS WEAKNESS T. 98.3 HR 77 RR 18 B/P 124/61 WBC 12.2 BUN 29 CR 1.[address] SPINE- NO ACUTE FX PELVIC CT= NO FRACTURE HEAD CT= NEGATIVE IS: IV BOLUS NS X 500ML ADMITTED TO TELE @ 5306 TELE STATUS DCP RETURN HOME VS SNF
--- NOTE | 2019-01-09 14:15 | NUR ---
PT EVALUATION NOTE Patient seen for initial evaluation. Patient presents with generalized weakness and c/o dizziness. Patient required CGA/min assist to come to sitting at the EOB. OOB activities deferred due to elevated BP. Patient will benefit from skilled inpatient PT intervention to address strength, balance and safety to improve level of functional mobility. Patient lives in a second floor apartment with 22 stairs to negotiate and no elevator access. Recommend discharge to SNF for further rehab vs home with home PT as patient has 22 stairs to negotiate once medically cleared by MD. DME needs to be determined based on patient's progress. Addendum: 01/09/19 at 1509 by DELVIN DAVID PT Amended: Links added.
--- NOTE | 2019-01-09 15:00 | NUR ---
NURSE NOTES: Per T patient blood pressure elevated. rechecked 163/73 patient asymptomatic. PRN hydralazine given. will monitor.
--- NOTE | 2019-01-09 16:30 | NUR ---
NURSE NOTES: Blood pressure recheck after PRN hydralazine 185/87 patient asymptomatic. Call out to Dr. Arevalo awaiting Call back
--- NOTE | 2019-01-09 16:40 | NUR ---
NURSE NOTES: Dr. Michel made aware of elevated blood pressure. MD said he will review all meds and make adjustments. recent B/P 171/87 patient remains asymptomatic. will follow.
--- NOTE | 2019-01-09 18:40 | NUR ---
NURSE NOTES: New order received from Dr. Michel. to give one time dose of hydralazine. will follow
[2019-01-09] MEDS ORDERED: HydrALAZINE 25mg tab ORAL SCH (18:45)
[2019-01-09] MEDS ORDERED: HydrALAZINE 25mg tab ORAL PRN (18:45)
--- NOTE | 2019-01-09 19:45 | NUR ---
HAND-OFF: Report given to Charles Hill. Plan of care endorsed.
--- NOTE | 2019-01-09 19:50 | NUR ---
NURSE NOTES: Pt received from KATELYNN Patel alert and oriented x4, primarily [place]- speaking with no acute s/s of distress noted. IV site asymptomatic and patent on L fa 20g, saline lock. Bed in lowest position, bed alarm on with BSC at bedside. Call light and belongings within reach.
[2019-01-09] MEDS ORDERED: Tubing IV Secondary IV ONE (21:07)
[2019-01-09] MEDS: cefTRIAXone 1 GM in D5W 55 ML IVPB SCH (21:53)
[2019-01-10] VITALS: BP 139/50
[2019-01-10 04:00] VITALS: BP 145/55
[2019-01-10] MEDS: Heparin 5000 units/ml inj SUBQ SCH ×3 (06:00→21:33)
[2019-01-10] MEDS: NovoLOG Insulin Flexpen SUBQ SCH ×4 (06:33→21:34)
[2019-01-10 07:13] LABS: BASOPHILS % (AUTO) 0.4 % (0.0-2.0); EOSINOPHILS % (AUTO) 7.8 % (0.0-3.0); HEMATOCRIT 35.8 % (37.0-47.0); HEMOGLOBIN 12.3 G/DL (12.0-16.0); LYMPHOCYTES % (AUTO) 25.8 % (20.0-45.0); MEAN CORPUSCULAR VOLUME 81 FL (80-99); MONOCYTES % (AUTO) 7.5 % (1.0-10.0); NEUTROPHILS % (AUTO) 58.5 % (45.0-75.0); PLATELET COUNT 242 K/UL (150-450); RED CELL DISTRIBUTION WIDTH 12.1 % (11.6-14.8); WHITE BLOOD COUNT 10.9 K/UL (4.8-10.8)
[2019-01-10 07:29] LABS: ANION GAP 11 mmol/L (5-15); BLOOD UREA NITROGEN 19 mg/dL (7-18); CARBON DIOXIDE 23 MMOL/L (21-32); CHLORIDE 107 MMOL/L (98-107); POTASSIUM 3.7 MMOL/L (3.5-5.1); SODIUM 141 MMOL/L (136-145)
--- NOTE | 2019-01-10 07:42 | NUR ---
NURSE NOTES: Received patient from Charles Hill. Patient is awake and alert. Citizen Of [place] speaking. No complain of pain or discomfort at this time. Reminded patient re: safety/fall preventions. Safety precautions in place. call valenzuela within reached. will follow.
--- NOTE | 2019-01-10 07:45 | NUR ---
HAND-OFF: Report given to KATELYNN Patel. Plan of care endorsed.
[2019-01-10 08:00] VITALS: BP 154/82
[2019-01-10] MEDS: Donepezil 5mg Tab ORAL SCH (08:31)
[2019-01-10] MEDS: Losartan 50mg tab ORAL SCH (08:32)
[2019-01-10 12:00] VITALS: BP 160/74
--- NOTE | 2019-01-10 12:35 | General Progress Note ---
Assessment/Plan Problem List: (1) Near syncope ICD Codes: R55 - Syncope and collapse SNOMED: 874893367 (2) Generalized weakness ICD Codes: R53.1 - Weakness SNOMED: 52588260 (3) Fall ICD Codes: W19.XXXA - Unspecified fall, initial encounter SNOMED: 1181928, 331250661 (4) Lightheaded ICD Codes: R42 - Dizziness and giddiness SNOMED: 452428972 (5) Leukocytosis ICD Codes: D72.829 - Elevated white blood cell count, unspecified SNOMED: 527337184, 683396942 (6) Diabetes mellitus type 2 in nonobese ICD Codes: E11.9 - Type 2 diabetes mellitus without complications SNOMED: 304703407 (7) Hypertension ICD Codes: I10 - Essential (primary) hypertension SNOMED: 09577175 (8) Peripheral neuropathy ICD Codes: G62.9 - Polyneuropathy, unspecified SNOMED: 394017776 (9) Hyperglycemia ICD Codes: R73.9 - Hyperglycemia, unspecified SNOMED: 74071576 (10) T12 compression fracture ICD Codes: S22.080A - Wedge compression fracture of T11-T12 vertebra, initial encounter for closed fracture SNOMED: 455465461 (11) Multiple injuries due to trauma ICD Codes: T07.XXXA - Unspecified multiple injuries, initial encounter SNOMED: 655895904, 791054024 Assessment/Plan: Is an 83-year-old female with a past medical history of diabetes, hypertension, peripheral neuropathy presenting with generalized weakness, lightheadedness x 1 day and dysuria. #Near syncope. No further syncopal episodes while inpatient #Generalized weakness, lightheadedness. Suspect dehydration versus infection ( UTI) -improving #Leukocytosis, mild. Reactive vs. infectious-improving > Unable to obtain UA in emergency department. > 2D echocardiogram showed moderate pulmonary hypertension with an RVSP of 52 > Urinalysis negative but taken after antibiotics > troponins negative -Admit to telemetry -Blood culture x2 - negative so far -Start Rocephin 1 g IV every 24 hours (01/08 - ). Plan for 3 day course -Discontinue NS @ 100 cc/hr #TESSIE versus CKD. Suspect prerenal-improving -IV fluids as above -trend Cr -avoid nephrotoxins #lip laceration - wound care consult #Hypertension -Continue losartan 100 mg p.o. daily -Hold chlorthalidone as may be contributing to dehydration as above -Increase hydralazine to 25 mg p.o. every 6 hours as needed for SBP greater than 160 #Diabetes mellitus type 2 -Hold home glipizide -Accu-Cheks before meals and at bedtime -Low sliding scale insulin -Hypoglycemia protocol #Peripheral neuropathy Continue home gabapentin 300 mg p.o. 3 times daily #History of T12 compression fracture #History of multiple pelvic fractures - continue to monitor - needs osteoporosis treatment as outpatient, likely #Hypomagnesemia -Replete PRN FENPPX DVTPPX: heparin SBQ Q8hrs GI PPX: none needed Fluids: none Diet: Diabetic Lines: peripheral PT/OT: pending Code status: Full Dispo: Home with home health vs. snf Reason for Continued Hospitalization: AMS, weakness 38 minutes spent on this encounter. Discussed with patient, RN, and family. > 50 % spent on counseling and care coordination. Time of note may not reflect time patient was seen. Subjective Allergies: Coded Allergies: No Known Allergies (Unverified , 01/08/19) Subjective No acute events overnight per nursing. Hip patient feels much stronger, the dizziness has resolved. She denies any other complaints. She denies cough chest pain shortness of breath fever or chills Objective Last 24 Hour Vital Signs Date Time Temp Pulse Resp B/P (MAP) Pulse Ox O2 Delivery O2 Flow Rate FiO2 01/10/19 12:00 97.8 68 18 160/74 (102) 98 01/10/19 12:00 73 01/10/19 10:12 69 154/82 01/10/19 09:00 Room Air 01/10/19 08:32 154/82 01/10/19 08:00 70 01/10/19 08:00 97.6 69 17 154/82 (106) 95 01/10/19 04:00 63 01/10/19 04:00 97.8 67 18 145/55 (85) 100 01/10/19 00:00 97.9 66 18 139/50 (79) 97 01/10/19 00:00 97.9 66 18 139/50 (79) 97 01/10/19 00:00 67 01/09/19 21:54 165/84 01/09/19 21:30 77 163/84 (110) 01/09/19 21:00 Room Air 01/09/19 20:00 98.8 70 20 163/80 (107) 98 01/09/19 20:00 98.8 70 20 185/87 (119) 98 01/09/19 20:00 65 01/09/19 18:46 171/87 01/09/19 17:30 171/87 (115) 01/09/19 16:00 97.7 67 19 185/87 (119) 97 01/09/19 16:00 72 01/09/19 15:09 169/78 Intake and Output 01/09/19 01/10/19 19:00 07:00 Intake Total 120 ml 310 ml Output Total 600 ml Balance 120 ml -290 ml Intake Oral 120 ml 200 ml IV Total 110 ml Output Urine Total 600 ml # Voids 3 Laboratory Tests 01/09/19 18:50: Troponin I 0.005 01/10/19 05:29: White Blood Count 10.9H, Red Blood Count 4.40, Hemoglobin 12.3, Hematocrit 35.8L , Mean Corpuscular Volume 81, Mean Corpuscular Hemoglobin 28.0, Mean Corpuscular Hemoglobin Concent 34.4, Red Cell Distribution Width 12.1, Platelet Count 242, Mean Platelet Volume 6.9, Neutrophils (%) (Auto) 58.5, Lymphocytes (% ) (Auto) 25.8, Monocytes (%) (Auto) 7.5, Eosinophils (%) (Auto) 7.8H, Basophils (%) (Auto) 0.4, Sodium Level 141, Potassium Level 3.7, Chloride Level 107, Carbon Dioxide Level 23, Anion Gap 11, Blood Urea Nitrogen 19H, Creatinine 1.0, Estimat Glomerular Filtration Rate , Glucose Level 146H, Calcium Level 9.0 Height (Feet): 5 Height (Inches): 9.00 Weight (Pounds): 148 Jonathan Arevalo D.O. Jan 10, 2019 12:35
--- NOTE | 2019-01-10 12:49 | Cardiology Report ---
APPROVED REPORT EKG Measurement Heart [id number] Sinus rhythm with occasional premature ventricular complexes Possible Anterolateral infarct, age undetermined Abnormal ECG
--- NOTE | 2019-01-10 13:03 | Cardiology Report ---
APPROVED REPORT EXAM: Two-dimensional and M-mode echocardiogram with Doppler and color Doppler. INDICATION Shortness of breath. M-Mode DIMENSIONS IVSd1.0 (0.7-1.1cm)Left Atrium (MM)5.5 (1.6-4.0cm) LVDd5.1 (3.5-5.6cm)Aortic Root2.6 (2.0-3.7cm) PWd1.1 (0.7-1.1cm)Aortic Cusp Exc.1.4 (1.5-2.0cm) Normal left ventricular chamber size, systolic function and wall motion. Left ventricular ejection fraction estimated to be 55 %. Anterior Echo-free space, may be due to pericardial fat or effusion. Mild left atrial enlargement. Right cardiac chamber sizes are within normal limits. Aortic valve calcification with decreased cusp excursion c/w mild aortic stenosis. Thickened mitral valve leaflets with normal excursion. Mitral annulus and aortic root calcification. Normal pulmonic valve structure. Normal tricuspid valve structure. IVC dilated at 2.3 cm with slight physiologic collapse suggestive of increased RA pressure. A color flow and spectral Doppler study was performed and revealed: Peak aortic valve gradient of 19 mmHg and a mean of 10 mmHg. Aortic valve area 1.5 cm2 calculated by continuity equation. Trace mitral regurgitation. Mitral diastolic velocities suggest reduced left ventricular relaxation c/w mild LV diastolic dysfunction (Grade I ). Mild tricuspid regurgitation. Tricuspid systolic velocities suggests peak right ventricular systolic pressure of 52 mmHg consistent with moderate pulmonary hypertension.
[2019-01-10 16:00] VITALS: BP 150/61
--- NOTE | 2019-01-10 19:48 | NUR ---
HAND-OFF: Report given to Charles Pelletier. Plan of care endoresed.
--- NOTE | 2019-01-10 19:50 | NUR ---
NURSE NOTES: Received report from [place] RN. Patient in bed AAO X4 Chadian speaking with some Fijian noted. Son is present at bedside. No complaints of acute pain or discomfort noted, kept clean, dry, and comfortable in bed. Able to ambulate to the bathroom with staff assistance. IV line intact and patent SL and placed on continuous cardiac monitoring per protocol. Safety precaution in place; siderails X3 up, call light within reach, bed in lowest position, brakes and alarm on at all times. Needs and wants anticipated and attended. Will continue plan of care and monitor for any changes noted.
--- NOTE | 2019-01-10 20:07 | General Progress Note ---
Assessment/Plan Problem List: (1) Near syncope ICD Codes: R55 - Syncope and collapse SNOMED: 776833041 (2) Generalized weakness ICD Codes: R53.1 - Weakness SNOMED: 70118471 (3) Fall ICD Codes: W19.XXXA - Unspecified fall, initial encounter SNOMED: 8469692, 634606409 (4) Lightheaded ICD Codes: R42 - Dizziness and giddiness SNOMED: 690913687 (5) Leukocytosis ICD Codes: D72.829 - Elevated white blood cell count, unspecified SNOMED: 191524552, 379061244 (6) Diabetes mellitus type 2 in nonobese ICD Codes: E11.9 - Type 2 diabetes mellitus without complications SNOMED: 472124249 (7) Hypertension ICD Codes: I10 - Essential (primary) hypertension SNOMED: 47325271 (8) Peripheral neuropathy ICD Codes: G62.9 - Polyneuropathy, unspecified SNOMED: 870610493 (9) Hyperglycemia ICD Codes: R73.9 - Hyperglycemia, unspecified SNOMED: 83967499 (10) T12 compression fracture ICD Codes: S22.080A - Wedge compression fracture of T11-T12 vertebra, initial encounter for closed fracture SNOMED: 255419442 (11) Multiple injuries due to trauma ICD Codes: T07.XXXA - Unspecified multiple injuries, initial encounter SNOMED: 921829400, 413544201 Assessment/Plan: Is an 83-year-old female with a past medical history of diabetes, hypertension, peripheral neuropathy presenting with generalized weakness, lightheadedness x 1 day and dysuria. #Near syncope. No further syncopal episodes while inpatient #Generalized weakness, lightheadedness. Suspect dehydration versus infection ( UTI) -improving #Leukocytosis, mild. Reactive vs. infectious-improving > Unable to obtain UA in emergency department. > 2D echocardiogram showed moderate pulmonary hypertension with an RVSP of 52 > Urinalysis negative but taken after antibiotics > troponins negative -Admit to telemetry -Blood culture x2 - negative so far -Continue Rocephin 1 g IV every 24 hours (01/08 - ). Plan for 5 day course -f/u urine culture-currently growing gram-negative neha -S/p NS @ 100 cc/hr #TESSIE versus CKD. Suspect prerenal-improving -IV fluids as above -trend Cr -avoid nephrotoxins #lip laceration - wound care consult #Hypertension. Elevated -Continue losartan 100 mg p.o. daily -Start amlodipine 5 mg p.o. daily -Hold chlorthalidone as may be contributing to dehydration as above -hydralazine to 25 mg p.o. every 6 hours as needed for SBP greater than 160 #Diabetes mellitus type 2 -Hold home glipizide -Accu-Cheks before meals and at bedtime -Low sliding scale insulin -Hypoglycemia protocol #Peripheral neuropathy Continue home gabapentin 300 mg p.o. 3 times daily #History of T12 compression fracture #History of multiple pelvic fractures - continue to monitor - needs osteoporosis treatment as outpatient, likely #Hypomagnesemia -Replete PRN FENPPX DVTPPX: heparin SBQ Q8hrs GI PPX: none needed Fluids: none Diet: Diabetic Lines: peripheral PT/OT: pending Code status: Full Dispo: Family and patient has elected for SNF for rehab Reason for Continued Hospitalization: AMS, weakness. Pending placement 38 minutes spent on this encounter. Discussed with patient, RN, and family. > 50 % spent on counseling and care coordination. Time of note may not reflect time patient was seen. Subjective Date patient seen: Jan 10, 2019 Constitutional: Denies: chills, diaphoresis, fever, malaise, weakness, other HEENT: Reports: no symptoms; Denies: eye pain, blurred vision, tearing, double vision, ear pain, ear discharge, nose pain, nose congestion, throat pain, throat swelling, mouth pain, mouth swelling, other Cardiovascular: Denies: chest pain, edema, irregular heart rate, lightheadedness, palpitations, syncope, other Respiratory: Reports: no symptoms; Denies: cough, orthopnea, shortness of breath, SOB with excertion, SOB at rest, sputum, stridor, wheezing, other Gastrointestinal/Abdominal: Denies: abdomen distended, abdominal pain, black stools, tarry stools, blood in stool, constipated, diarrhea, difficulty swallowing, nausea, poor appetite, poor fluid intake, rectal bleeding, vomiting , other Genitourinary: Denies: burning, discharge, frequency, flank pain, hematuria, incontinence, pain, urgency, other Neurologic/Psychiatric: Denies: anxiety, depressed, emotional problems, headache, numbness, paresthesia, pre-existing deficit, seizure, tingling, tremors, weakness, other Endocrine: Denies: excessive sweating, flushing, intolerance to cold, intolerance to heat, increased hunger, increased thirst, increased urine, unexplained weight gain, unexplained weight loss, other Hematologic/Lymphatic: Denies: anemia, easy bleeding, easy bruising, other Allergies: Coded Allergies: No Known Allergies (Unverified , 01/08/19) Subjective No acute events overnight per nursing. Patient feels much stronger. Was able to walk around with physical therapy. Recommending SNF or rehab given that the patient is unable to climb up 22 steps at home. She denies cough chest pain shortness of breath fever or chills Objective Last 24 Hour Vital Signs Date Time Temp Pulse Resp B/P (MAP) Pulse Ox O2 Delivery O2 Flow Rate FiO2 01/10/19 16:00 69 01/10/19 16:00 97.7 69 17 150/61 (90) 100 01/10/19 12:00 97.8 68 18 160/74 (102) 98 01/10/19 12:00 73 01/10/19 10:12 69 154/82 01/10/19 09:00 Room Air 01/10/19 08:32 154/82 01/10/19 08:00 70 01/10/19 08:00 97.6 69 17 154/82 (106) 95 01/10/19 04:00 63 01/10/19 04:00 97.8 67 18 145/55 (85) 100 01/10/19 00:00 97.9 66 18 139/50 (79) 97 01/10/19 00:00 97.9 66 18 139/50 (79) 97 01/10/19 00:00 67 01/09/19 21:54 165/84 01/09/19 21:30 77 163/84 (110) 01/09/19 21:00 Room Air Intake and Output 01/09/19 01/10/19 18:59 06:59 Intake Total 240 ml 310 ml Output Total 600 ml Balance 240 ml -290 ml Intake Oral 240 ml 200 ml IV Total 110 ml Output Urine Total 600 ml # Voids 3 Laboratory Tests 01/10/19 05:29: White Blood Count 10.9H, Red Blood Count 4.40, Hemoglobin 12.3, Hematocrit 35.8L , Mean Corpuscular Volume 81, Mean Corpuscular Hemoglobin 28.0, Mean Corpuscular Hemoglobin Concent 34.4, Red Cell Distribution Width 12.1, Platelet Count 242, Mean Platelet Volume 6.9, Neutrophils (%) (Auto) 58.5, Lymphocytes (% ) (Auto) 25.8, Monocytes (%) (Auto) 7.5, Eosinophils (%) (Auto) 7.8H, Basophils (%) (Auto) 0.4, Sodium Level 141, Potassium Level 3.7, Chloride Level 107, Carbon Dioxide Level 23, Anion Gap 11, Blood Urea Nitrogen 19H, Creatinine 1.0, Estimat Glomerular Filtration Rate , Glucose Level 146H, Calcium Level 9.0 Height (Feet): 5 Height (Inches): 9.00 Weight (Pounds): 148 General Appearance: WD/WN, no apparent distress, alert EENT: PERRL/EOMI, normal ENT inspection Neck: non-tender, normal alignment, supple Cardiovascular: normal peripheral pulses, normal rate, regular rhythm, no JVD Respiratory/Chest: chest wall non-tender, lungs clear, normal breath sounds Abdomen: normal bowel sounds, non tender, soft, no organomegaly Extremities: normal range of motion, non-tender Edema: other - No lower extremity edema bilaterally Neurologic: political science research assistant II-XII grossly normal, no motor/sensory deficits, alert, oriented x 3, responsive Skin: normal pigmentation, warm/dry Jonathan Arevalo D.O. Jan 10, 2019 20:07
[2019-01-10] MEDS: cefTRIAXone 1 GM in D5W 55 ML IVPB SCH (21:33)
[2019-01-11 01:00] VITALS: BP 100/64
--- NOTE | 2019-01-11 01:02 | NUR ---
TRANSFER NOTE: Pt transferred from at 1255 and report received from Prabhu. Pt is A/Ox4, Bulgarian speaking with stable VS. Orders reviewed and physical assessment completed. Skin is intact. Belongings accounted for on patient belongings form. Bed alarm is activated, low, and locked. Pt educated nurse practitioner hospitalist valenzuela usage and to wait for assistance if need to get up arises. [employer] phone placed in pt room. Will continue to monitor.
--- NOTE | 2019-01-11 01:06 | NUR ---
INTER-FACILITY TRANSFER: Patient transferred to , per Mickey. Report given to KATELYNN Wise. Patient transferred with valuables. Belongings verified upon transfer and given to RN. Family/S.O. notified of transfer. Will transfer floor orders per protocol.
[2019-01-11 04:05] VITALS: BP 119/63
[2019-01-11] MEDS: NovoLOG Insulin Flexpen SUBQ SCH ×4 (06:38→21:38)
[2019-01-11] MEDS: Heparin 5000 units/ml inj SUBQ SCH ×3 (06:39→21:37)
[2019-01-11] MEDS ORDERED: traMADol 50mg tab ORAL PRN (06:45)
[2019-01-11] MEDS ORDERED: HydrALAZINE 25mg tab ORAL PRN (06:45)
[2019-01-11 08:00] VITALS: BP 139/59
--- NOTE | 2019-01-11 08:00 | NUR ---
NURSE NOTES: received patient in bed, awake, alert, no complaint of pain or discomfort. RFA IV access, saline locked. Bed locked at the lowest position possible, and on alarm zone 1, call light within easy reach, siderails up x2. Will continue to monitor patient and follow up with the plan of care.
[2019-01-11] MEDS: Donepezil 5mg Tab ORAL SCH (09:37)
[2019-01-11] MEDS: Losartan 50mg tab ORAL SCH (09:37)
[2019-01-11 12:00] VITALS: BP 155/72
--- NOTE | 2019-01-11 14:27 | General Progress Note ---
Assessment/Plan Problem List: (1) Near syncope ICD Codes: R55 - Syncope and collapse SNOMED: 247492883 (2) Generalized weakness ICD Codes: R53.1 - Weakness SNOMED: 64848307 (3) Fall ICD Codes: W19.XXXA - Unspecified fall, initial encounter SNOMED: 6674814, 892061741 (4) Lightheaded ICD Codes: R42 - Dizziness and giddiness SNOMED: 100519733 (5) Leukocytosis ICD Codes: D72.829 - Elevated white blood cell count, unspecified SNOMED: 612553106, 343498799 (6) Diabetes mellitus type 2 in nonobese ICD Codes: E11.9 - Type 2 diabetes mellitus without complications SNOMED: 731213308 (7) Hypertension ICD Codes: I10 - Essential (primary) hypertension SNOMED: 61399653 (8) Peripheral neuropathy ICD Codes: G62.9 - Polyneuropathy, unspecified SNOMED: 898469806 (9) Hyperglycemia ICD Codes: R73.9 - Hyperglycemia, unspecified SNOMED: 17980072 (10) T12 compression fracture ICD Codes: S22.080A - Wedge compression fracture of T11-T12 vertebra, initial encounter for closed fracture SNOMED: 800880204 (11) Multiple injuries due to trauma ICD Codes: T07.XXXA - Unspecified multiple injuries, initial encounter SNOMED: 962714485, 158636970 Assessment/Plan: This Is an 83-year-old female with a past medical history of diabetes, hypertension, peripheral neuropathy presenting with generalized weakness, lightheadedness x 1 day and dysuria. #Near syncope suspected secondary to dehydration and UTI. no further syncopal episodes while inpatient #Generalized weakness, lightheadedness. Suspect dehydration versus infection ( UTI) -improving #UTI, culture growing gram-negative neha > Unable to obtain UA in emergency department. > 2D echocardiogram showed moderate pulmonary hypertension with an RVSP of 52 > Urinalysis negative but taken after antibiotics > troponins negative -Admit to telemetry -Blood culture x2 - negative so far -Continue Rocephin 1 g IV every 24 hours (01/08 - ). Plan for 5 day course -f/u urine culture-currently growing gram-negative neha -S/p NS @ 100 cc/hr #TESSIE versus CKD. Suspect prerenal-improving -IV fluids as above -trend Cr -avoid nephrotoxins #lip laceration - wound care consult #Hypertension. improved -Continue losartan 100 mg p.o. daily -Continue amlodipine 5 mg p.o. daily -Hold chlorthalidone as may be contributing to dehydration as above -hydralazine to 25 mg p.o. every 6 hours as needed for SBP greater than 160 #Diabetes mellitus type 2 -Hold home glipizide -Accu-Cheks before meals and at bedtime -Low sliding scale insulin -Hypoglycemia protocol #Peripheral neuropathy Continue home gabapentin 300 mg p.o. 3 times daily #History of T12 compression fracture #History of multiple pelvic fractures - continue to monitor - needs osteoporosis treatment as outpatient, likely #Hypomagnesemia -Replete PRN FENPPX DVTPPX: heparin SBQ Q8hrs GI PPX: none needed Fluids: none Diet: Diabetic Lines: peripheral PT/OT: pending Code status: Full Dispo: Family and patient has elected for SNF for rehab Reason for Continued Hospitalization: AMS, weakness. Pending placement 28 minutes spent on this encounter. Discussed with patient, RN, and family. > 50 % spent on counseling and care coordination. Time of note may not reflect time patient was seen. Subjective Date patient seen: Jan 11, 2019 Constitutional: Denies: chills, diaphoresis, fever, malaise, weakness, other HEENT: Denies: eye pain, blurred vision, tearing, double vision, ear pain, ear discharge, nose pain, nose congestion, throat pain, throat swelling, mouth pain , mouth swelling, other Cardiovascular: Denies: chest pain, edema, irregular heart rate, lightheadedness, palpitations, syncope, other Respiratory: Denies: cough, orthopnea, shortness of breath, SOB with excertion , SOB at rest, sputum, stridor, wheezing, other Gastrointestinal/Abdominal: Denies: abdomen distended, abdominal pain, black stools, tarry stools, blood in stool, constipated, diarrhea, difficulty swallowing, nausea, poor appetite, poor fluid intake, rectal bleeding, vomiting , other Genitourinary: Denies: burning, discharge, frequency, flank pain, hematuria, incontinence, pain, urgency, other Neurologic/Psychiatric: Denies: anxiety, depressed, emotional problems, headache, numbness, paresthesia, pre-existing deficit, seizure, tingling, tremors, weakness, other Endocrine: Denies: excessive sweating, flushing, intolerance to cold, intolerance to heat, increased hunger, increased thirst, increased urine, unexplained weight gain, unexplained weight loss, other Hematologic/Lymphatic: Denies: anemia, easy bleeding, easy bruising, other Allergies: Coded Allergies: No Known Allergies (Unverified , 01/08/19) Subjective No acute events overnight per nursing. Patient feels much stronger. Was able to work well with physical therapy. Still desiring nursing home facility after discharge for further rehabilitation. Denies any other complaints. She denies cough chest pain shortness of breath fever or chills Objective Last 24 Hour Vital Signs Date Time Temp Pulse Resp B/P (MAP) Pulse Ox O2 Delivery O2 Flow Rate FiO2 01/11/19 12:00 98.6 71 16 155/72 (99) 95 01/11/19 09:37 139/59 01/11/19 09:36 69 139/59 01/11/19 09:00 Room Air 01/11/19 08:00 98.1 69 16 139/59 (85) 95 01/11/19 04:05 98.0 63 16 119/63 (81) 95 01/11/19 01:00 97.8 65 17 100/64 (76) 100 01/10/19 21:00 Room Air 01/10/19 16:00 69 01/10/19 16:00 97.7 69 17 150/61 (90) 100 Intake and Output 01/10/19 01/11/19 19:00 07:00 Intake Total 600 ml Balance 600 ml Intake Oral 600 ml # Voids 3 1 # Bowel Movements 1 Height (Feet): 5 Height (Inches): 9.00 Weight (Pounds): 148 General Appearance: WD/WN, no apparent distress, alert EENT: PERRL/EOMI, normal ENT inspection Neck: non-tender, normal alignment, supple Cardiovascular: normal peripheral pulses, normal rate, regular rhythm, no JVD Respiratory/Chest: chest wall non-tender, lungs clear, normal breath sounds Abdomen: normal bowel sounds, non tender, soft, no organomegaly, no mass Extremities: normal range of motion, non-tender, normal inspection Edema: other - No lower extremity edema bilaterally Neurologic: edge stripper II-XII grossly normal, no motor/sensory deficits, alert, oriented x 3, responsive, normal mood/affect Skin: normal pigmentation, warm/dry Jonathan Arevalo D.O. Jan 11, 2019 14:27
[2019-01-11 16:00] VITALS: BP 164/68
--- NOTE | 2019-01-11 18:30 | NUR ---
NURSE NOTES: given sponge bath to patient, changed gown and yellow socks.
--- NOTE | 2019-01-11 19:22 | NUR ---
HAND-OFF: Report given to KATELYNN Munoz.
--- NOTE | 2019-01-11 19:30 | NUR ---
NURSE NOTES: Received report from KATELYNN Benitez. Received pt laying in bed, AOx4, Divehi speaking only, able to make needs known without any problems. Denies any pain, no distress noted. IV right forearm patent and intact. Bed in lowest position and locked, side rails up x 2, call light within reach. Will continue to monitor.
--- NOTE | 2019-01-11 19:45 | NUR ---
NURSE NOTES: Per family member, pt is complaining of heartburn, no medication order for heart burn. Paged Dr. Ortega, left message with answering service, awaiting for call back. Will continue to monitor.
[2019-01-11 20:00] VITALS: BP 137/59
[2019-01-11] MEDS ORDERED: cefTRIAXone 1 GM in D5W 55 ML IVPB SCH (21:00)
--- NOTE | 2019-01-11 21:15 | NUR ---
NURSE NOTES: Dr. Deidra Jeffers (covering for Dr. Ortega) called back, order obtained for heartburn. Order read back and verified. Will carry out order.
[2019-01-12 06:00] VITALS: BP 125/63
[2019-01-12] MEDS: NovoLOG Insulin Flexpen SUBQ SCH ×3 (06:13→17:08)
[2019-01-12] MEDS: Heparin 5000 units/ml inj SUBQ SCH ×2 (06:13→15:03)
--- NOTE | 2019-01-12 07:17 | NUR ---
HAND-OFF: Report given to Salvador Woodruff RN. Pt in stable condition.
--- NOTE | 2019-01-12 07:17 | NUR ---
NURSE NOTES: Received report from Pradip PACE. Pt in bed and no c/o pain and No acute distress noted. On room air. Alert and oriented x4 and romansh speaking only. No s/sx of bleeding noted. IV site in RFA 20G SL patent and asymptomatic. Bed in lowest position and locked. Call light within easy reach. Will continue to plan of care.
[2019-01-12 08:00] VITALS: BP 134/56
[2019-01-12] MEDS: Losartan 50mg tab ORAL SCH (08:36)
[2019-01-12] MEDS: Donepezil 5mg Tab ORAL SCH (08:36)
[2019-01-12 12:00] VITALS: BP 147/64
--- NOTE | 2019-01-12 14:00 | General Progress Note ---
Subjective Allergies: Coded Allergies: No Known Allergies (Unverified , 01/08/19) Objective Last 24 Hour Vital Signs Date Time Temp Pulse Resp B/P (MAP) Pulse Ox O2 Delivery O2 Flow Rate FiO2 01/12/19 12:00 98.9 66 18 147/64 (91) 97 01/12/19 09:00 Room Air 01/12/19 08:36 125/63 01/12/19 08:36 66 125/63 01/12/19 08:00 98.4 68 18 134/56 (82) 96 01/12/19 06:00 97.9 66 18 125/63 (83) 97 01/11/19 21:00 Room Air 01/11/19 20:00 97.0 67 20 137/59 (85) 95 01/11/19 16:06 164/68 01/11/19 16:00 97.9 70 18 164/68 (100) 99 Intake and Output 01/11/19 01/12/19 19:00 07:00 Intake Total 720 ml 155 ml Balance 720 ml 155 ml Intake Oral 720 ml 100 ml IV Total 55 ml # Voids 3 2 # Bowel Movements 1 Height (Feet): 5 Height (Inches): 9.00 Weight (Pounds): 148 Tre Austin M.D. Jan 12, 2019 14:00
--- NOTE | 2019-01-12 14:38 | NUR ---
*-* DISCHARGE PLANNING *-* PATIENT HAS BEEN REFERRED TO: [facility] P: [phone] F: [phone]
[2019-01-12 15:59] VITALS: BP 144/64
[2019-01-12] MEDS ORDERED: TYLENOL325 MG ORAL (16:05)
[2019-01-12] MEDS ORDERED: NORVASC5 MG ORAL (16:06)
[2019-01-12] MEDS ORDERED: HEPARIN SO5000 UNIT2 SUBQ (16:07)
[2019-01-12] MEDS ORDERED: HYDRALAZINE HCL25 M1 ORAL (16:08)
[2019-01-12] MEDS ORDERED: NOVOLOG100 UNITS1 (16:09)
[2019-01-12] MEDS ORDERED: PANTOPRAZOLE SO40 MG ORAL (16:09)
[2019-01-12] MEDS ORDERED: TRAMADOL HCL50 MG ORAL (16:10)
[2019-01-12] MEDS ORDERED: Sterile Water Irrig 1000ml IRRIG ONE (16:42)
[2019-01-12] MEDS ORDERED: NS 275ml ONE ×2 (16:42→19:50)
[2019-01-12] MEDS ORDERED: cefTRIAXone 1 GM in D5W 55 ML IVPB SCH (17:00)
--- NOTE | 2019-01-12 17:17 | Discharge Summary ---
Discharge Summary Hospital Course Date of Admission Jan 08, 2019 at 14:55 Date of Discharge 01/12/2019 Admitting Diagnosis multiple falls, weakness, near syncope HPI Janet Roberts is a 83 year old female who was admitted on Jan 08, 2019 at 14:55 for Multiple Falls, Weakness, Near Syncope Procedures EKG, Echocardiogram Hospital Course This is an 83-year-old female with a past medical history of diabetes, hypertension, peripheral neuropathy presenting with generalized weakness, lightheadedness x 1 day and dysuria. #Near syncope suspected secondary to dehydration and UTI. no further syncopal episodes while inpatient #Generalized weakness, lightheadedness. Suspect dehydration versus infection ( UTI) -improved #UTI, culture growing gram-negative neha > Unable to obtain UA in emergency department. > 2D echocardiogram showed moderate pulmonary hypertension with an RVSP of 52 > Urinalysis negative but taken after antibiotics > troponins negative -Admited to telemetry -Blood culture x2 - negative so far -Continued Rocephin 1 g IV every 24 hours (01/08 - 01/12). 5 day course -f/u urine culture-currently growing gram-negative neha -S/p NS @ 100 cc/hr #TSESIE versus CKD. Suspect prerenal-improving -IV fluids as above -trend Cr -avoid nephrotoxins #lip laceration - wound care consult #Hypertension. improved -Continue losartan 100 mg p.o. daily -Continue amlodipine 5 mg p.o. daily -Discontinued chlorthalidone as may be contributing to dehydration as above -hydralazine to 25 mg p.o. every 6 hours as needed for SBP greater than 160 #Diabetes mellitus type 2 -Hold home glipizide -Accu-Cheks before meals and at bedtime -Low sliding scale insulin -Hypoglycemia protocol #Peripheral neuropathy Continue home gabapentin 300 mg p.o. 3 times daily #History of T12 compression fracture #History of multiple pelvic fractures - continue to monitor - needs osteoporosis treatment as outpatient, likely #Hypomagnesemia -Replete PRN FENPPX DVTPPX: heparin SBQ Q8hrs GI PPX: none needed Fluids: none Diet: Diabetic Lines: peripheral PT/OT: pending Code status: Full On the day of discharge patient seen and examined with family at bedside. She is alert and oriented x3, lungs CTA bl, CVS: s1s2, LE: No edema Dispo: Family and patient has elected for SNF for rehab. She is going to [facility] Reason for Continued Hospitalization: AMS, weakness. Pending placement 35 minutes spent on this encounter. Discussed with patient, RN, and family. > 50 % spent on counseling and care coordination. Time of note may not reflect time patient was seen. Discharge Medications Continued Medications: Acetaminophen (Tylenol) 325 Mg Tablet 650 MG ORAL Q6H PRN for Prn Pain/Headache/Temp > 101, #30 TAB 0 Refills (This prescription has been renewed) Amlodipine Besylate (Norvasc) 5 Mg Tablet 5 MG ORAL DAILY, TAB (This prescription has been renewed) Donepezil Hcl* (Donepezil Hcl*) 5 Mg Tab.rapdis 5 MG ORAL DAILY, TAB (This prescription has been renewed) Gabapentin* (Gabapentin*) 300 Mg Capsule 300 MG ORAL THREE TIMES A DAY, CAP 0 Refills (This prescription has been renewed ) Heparin Sod (Porcine) (Heparin Sodium*) 5 000/1 Ml Vial 5000 UNITS SUBQ EVERY 8 HOURS, VIAL (This prescription has been renewed) Hydralazine Hcl* (Hydralazine Hcl*) 25 Mg Tablet 25 MG ORAL EVERY 6 HOURS PRN for For High Blood Pressure, TAB 0 Refills (This prescription has been renewed) Insulin Aspart (Novolog Flexpen) 100 Unit/1 Ml Insuln.pen AC+HS (This prescription has been renewed) Loratadine (Loratadine) 10 Mg Tablet 10 MG PO DAILY, TAB (This prescription has been renewed) Losartan Potassium* (Losartan Potassium*) 50 Mg Tablet 100 MG ORAL DAILY, TAB (This prescription has been renewed) Pantoprazole* (Pantoprazole*) 40 Mg Tablet.dr 40 MG ORAL ACBREAKFAST, TAB (This prescription has been renewed) Tramadol Hcl* (Ultram*) 50 Mg Tablet 50 MG ORAL Q6H PRN for Moderate Pain (Pain Scale 4-6), #12 TAB 0 Refills (This prescription has been renewed) Discontinued Medications: Acetaminophen (Tactinal) 500 Mg Tablet 500 MG PO EVERY 8 HOURS, TAB Chlorthalidone* (Chlorthalidone*) 25 Mg Tablet 25 MG ORAL DAILY, TAB Discharge Condition Upon Discharge: stable Discharge Disposition Patient was discharged to [facility] SNF Discharge Diagnoses: (1) UTI (urinary tract infection) (2) Dehydration (3) Peripheral neuropathy (4) Hypertension (5) Fall (6) Lightheaded (7) Diabetes mellitus type 2 in nonobese (8) Near syncope (9) Multiple injuries due to trauma Tre Austin M.D. Jan 12, 2019 17:17
--- NOTE | 2019-01-12 17:34 | NUR ---
NURSE NOTES: Report given to Joy [email or web address].
--- NOTE | 2019-01-12 19:20 | NUR ---
HAND-OFF: Report given to Pradip PACE. Pt remains stable.
--- NOTE | 2019-01-12 19:57 | NUR ---
NURSE NOTES: Patient VSS. No SOB noted. No pain at this time. Left to [facility] accompanied by two EMT's. IV site removed. Discharge papers given to EMT's. Family at bedside. AM RN added patients Insulin flexpen with discharge papers per RN [facility] does not have any flexpen to use during the night. Patient left in stable condition.
== END 2019-01-12 19:51 | DRG 690 ==
LOC: EDBEDREQ 14:16 → EMR 14:45 → 3E 14:55 → EDBEDREQ 15:23 → 2E 20:43 → 3E 01-11 01:30
DX: N39.0 Urinary tract infection, site not specified (principal); S22.080A Wedge compression fracture of T11-T12 vertebra, initial encounter for closed fracture; N17.9 Acute kidney failure, unspecified; E86.0 Dehydration; E11.65 Type 2 diabetes mellitus with hyperglycemia; R55 Syncope and collapse; Z87.891 Personal history of nicotine dependence; M79.7 Fibromyalgia; G62.9 Polyneuropathy, unspecified; W19.XXXA Unspecified fall, initial encounter; E83.42 Hypomagnesemia; I27.20 Pulmonary hypertension, unspecified; S01.511A Laceration without foreign body of lip, initial encounter; R42 Dizziness and giddiness; R53.1 Weakness; I12.9 Hypertensive chronic kidney disease with stage 1 through stage 4 chronic kidney disease, or unspecified chronic kidney disease; E11.22 Type 2 diabetes mellitus with diabetic chronic kidney disease; N18.9 Chronic kidney disease, unspecified; Z23 Encounter for immunization
CPT/HCPCS: 36415; 70450; 71045; 72131; 72192; 80048; 80053; 81003; 82962; 83690; 83735; 83880; 84100; 84484; 85025; 87040; 87086; 87181; 90689; 93005; 93306; 99285; J1815

== ENCOUNTER → 2019-09-21 | Outpatient (CLI) | payer MEDICARE, MEDICAID ==
[~2019-09-21] VITALS: Ht 152.4 cm; Wt 69.4 kg
[~2019-09-21] MED LIST: ATORVASTATIN CA40 MG ORAL; CHLORTHALIDONE25 MG ORAL; DONEPEZIL HCL5 M2 ORAL; FERROUS SULFAT325 MG ORAL; GABAPENTIN300 MG ORAL; GERI-TUSSIN DM473 M1 PO; GLIPIZIDE10 MG PO; HEPARIN SO5000 UNIT2 SUBQ; HYDRALAZINE HCL25 M1 ORAL; ISOSORBIDE MONO20 MG PO; LORATADINE10 M2 PO; LOSARTAN POTASS50 MG ORAL; MELOXICAM7.5 MG PO; NORVASC5 MG ORAL; NOVOLOG100 UNITS1; OMEPRAZOLE40 M1 ORAL; PANTOPRAZOLE SO40 MG ORAL; TACTINAL500 M1 PO; TRADJENTA5 MG PO; TRAMADOL HCL50 MG ORAL; TYLENOL325 MG ORAL; VITAMIN C500 M1 ORAL
[2019-09-21 16:11] VITALS: BP 137/55
--- NOTE | 2019-09-21 17:14 | Consultation ---
DATE OF CONSULTATION: 09/21/2019 GASTROENTEROLOGY CONSULTATION CONSULTING PHYSICIAN: Ed Gonzalez MD. REFERRING PHYSICIAN: Magdy Faulkner MD. CHIEF COMPLAINT: Abdominal pain. HISTORY OF PRESENT ILLNESS: The patient is an 84-year-old female with multiple medical problems, which I will dictate in a second, complained of periumbilical abdominal pain on and off. No constipation. No nausea. No vomiting. No dysphagia. No odynophagia. Past colonoscopy was over five years ago. PAST MEDICAL HISTORY: 1. Hypertension. 2. Asthma. 3. Fibromyalgia. 4. Diabetes. 5. Anemia. PAST SURGICAL HISTORY: after she had a many years ago. MEDICATIONS: Please see medication reconciliation list. FAMILY HISTORY: Noncontributory. SOCIAL HISTORY: The patient denies any tobacco, alcohol, or drug abuse. ALLERGIES: No known drug allergies. REVIEW OF SYSTEMS: Positive for abdominal pain, GERD, and bloating. PHYSICAL EXAMINATION: VITAL SIGNS: Temperature 98.4, blood pressure 137/55, pulse 75, respirations 20. HEENT: Normocephalic and atraumatic. Sclerae are anicteric. NECK: Supple. No evidence of obvious lymphadenopathy. CARDIOVASCULAR: Regular rate and rhythm. Plus S1-S2. LUNGS: Clear to auscultation bilaterally. ABDOMEN: Positive bowel sounds. Soft and nontender. No rebound. No guarding. No peritoneal sign. EXTREMITIES: No cyanosis. No clubbing. No edema. LABORATORY DATA: Labs not available. ASSESSMENT AND PLAN: This is an 84-year-old female with past medical history of anemia, last colonoscopy was 5 years, nonspecific abdominal pain, chronic GERD. Plan is to perform endoscopy and colonoscopy. The patient was informed of the risks and benefits of procedure. Prep was given. We will schedule her. I want thank Dr. Magdy Faulkner for this kind referral. Ed Gonzalez M.D. DR: JERRY JOB#: [id number] CC: Magdy Faulkner M.D.; Fax#: [phone]
== END | disposition home or self-care (01) ==
LOC: PAN 13:11
DX: R10.9 Unspecified abdominal pain (principal); I10 Essential (primary) hypertension; E11.9 Type 2 diabetes mellitus without complications; K21.9 Gastro-esophageal reflux disease without esophagitis

== ENCOUNTER 2019-11-18 12:32 | Outpatient (CLI) | payer MEDICARE, MEDICAID ==
[2019-11-18 12:47] VITALS: BP 152/65
--- NOTE | 2019-11-18 13:29 | General Progress Note ---
Assessment/Plan Assessment/Plan: SUMMARY OF FINDINGS: 1. Gastritis, status post biopsy. 2. Gastric polyps, most likely fundic gland polyps, status post biopsy. 3. Internal hemorrhoids. 4. Scattered left-sided diverticulosis. 5. One colonic polyp, removed. See above for details. 6. Fair colonic prep. RECOMMENDATIONS: path reviewed add Align will recommend repeat colonoscopy in 3 years Subjective ROS Limited/Unobtainable: Yes Allergies: Coded Allergies: No Known Allergies (Unverified , 01/08/19) Objective Last 24 Hour Vital Signs Date Time Temp Pulse Resp B/P (MAP) Pulse Ox O2 Delivery O2 Flow Rate FiO2 11/18/19 12:47 97.6 75 16 152/65 (94) 96 General Appearance: alert EENT: normal ENT inspection Neck: supple Cardiovascular: normal rate Respiratory/Chest: decreased breath sounds Abdomen: normal bowel sounds, non tender, soft Extremities: non-tender Ed Gonzalez MD Nov 18, 2019 13:29
== END 2019-11-18 14:32 | disposition home or self-care (01) ==
LOC: PAN 12:32
DX: K29.70 Gastritis, unspecified, without bleeding (principal); K31.7 Polyp of stomach and duodenum; K64.8 Other hemorrhoids; K57.90 Diverticulosis of intestine, part unspecified, without perforation or abscess without bleeding; K63.5 Polyp of colon
CPT/HCPCS: 99212